=== PATIENT | female | born 1975 | race Caucasian/White ===

== ENCOUNTER 2023-08-21 14:58 | Outpatient (CLI) | payer OTHER | END 2023-08-21 14:59 | disposition home or self-care (01) | LOC: BICMAMMO 14:58 | PROVIDERS: ATTEND Student in an Organized Health Care Education/Training Program | DX: Z12.31 Encounter for screening mammogram for malignant neoplasm of breast (principal); N63.10 Unspecified lump in the right breast, unspecified quadrant; Z80.3 Family history of malignant neoplasm of breast | CPT/HCPCS: 77063; 77067 ==

== ENCOUNTER 2023-09-19 14:56 | Outpatient (CLI) | payer OTHER | END 2023-09-19 14:57 | disposition home or self-care (01) | LOC: BICMAMMO 14:56 | PROVIDERS: ATTEND Student in an Organized Health Care Education/Training Program | DX: N63.15 Unspecified lump in the right breast, overlapping quadrants (principal); N60.01 Solitary cyst of right breast | CPT/HCPCS: G0279 ==